=== PATIENT | female | born 1990 | race Two or more races ===

== ENCOUNTER 2019-12-17 15:48 | Emergency (ER) | payer MEDICAID ==
[~2019-12-17] VITALS: Ht 154.9 cm; Wt 67.6 kg
[2019-12-17 15:53] VITALS: BP 122/82
--- NOTE | 2019-12-17 16:35 | Emergency Room Report ---
History of Present Illness General Chief Complaint: Lower Extremity Injury Source: Patient Present Illness HPI 29 YO female presents to the ED c/o 11/21 in severity right knee pain x 1 month. Denies trauma or fall. Patient reports that she was squatting down to pick something up and she felt 3 pops in her knee. Patient states that she was still able to bear weight and walk however throughout the rest of that day she began having more pain and she woke up the next day with a swollen knee. Patient reports that over the course of 1 month her knee swelling has gone up and down depending on how much activity she is doing. Patient denies instability. She does report pain with full extension of the knee. Patient reports most comfortable position is with the knee slightly bent. She denies previous injury to the extremity. She denies bruising, skin color changes or temperature changes to the affected extremity. Patient denies paresthesias. No other aggravating or relieving factors. Patient reports she took Motrin for the first week and had some relief however she states she does not like taking oral medication and would rather have some other form of remedy. Allergies: Coded Allergies: ACETAMINOPHEN (Verified Allergy, Unknown, 12/17/19) HYDROCODONE (Verified Allergy, Unknown, 12/17/19) COVID-19 Screening Contact w/high risk pt: No Experienced COVID-19 symptoms?: No COVID-19 Testing performed SEVERITY OF ILLNESS COORDINATOR: No Patient History Past Medical History: see triage record Past Surgical History: none Pertinent Family History: none Last Menstrual Period: 12/07/19 Now: No Reviewed Nursing Documentation: PMH: Agreed; PSxH: Agreed Nursing Documentation-PMH Past Medical History: No Stated History Review of Systems All Other Systems: negative except mentioned in HPI Physical Exam Vital Signs Date Time Temp Pulse Resp B/P (MAP) Pulse Ox O2 Delivery O2 Flow Rate FiO2 12/17/19 15:53 99.0 74 17 122/82 (95) 98 Room Air Sp02 EP Interpretation: reviewed, normal General Appearance: no apparent distress, alert, GCS 15, non-toxic Head: normocephalic, atraumatic Eyes: bilateral eye normal inspection, bilateral eye PERRL ENT: hearing grossly normal, normal voice Neck: full range of motion Respiratory: lungs clear, normal breath sounds, speaking full sentences Cardiovascular #1: regular rate, rhythm, no edema, normal capillary refill Cardiovascular #2: 2+ dorsalis pedis (R), 2+ dorsalis pedis (L) Musculoskeletal: back normal, normal range of motion, gait/station normal, other - No increased laxity upon varus or valgus stressing, negative anterior and posterior drawer signs of the right knee. some visible swelling anteriorly and proximally. No erythema or increased warmth. Neurologic: alert, motor strength/tone normal, oriented x3, sensory intact, responsive, speech normal Psychiatric: judgement/insight normal Skin: no rash, normal color Medical Decision Making PA Attestation Dr. Ortiz is my supervising Physician whom patient management has been discussed with. Diagnostic Impression: Primary Impression: Knee pain, right Qualified Codes: M25.561 - Pain in right knee ER Course 29 YO female presents to the ED c/o 11/21 in severity right knee pain x 1 month. Denies trauma or fall. Patient reports that she was squatting down to pick something up and she felt 3 pops in her knee. Patient states that she was still able to bear weight and walk however throughout the rest of that day she began having more pain and she woke up the next day with a swollen knee. Patient reports that over the course of 1 month her knee swelling has gone up and down depending on how much activity she is doing. Patient denies instability. She does report pain with full extension of the knee. Patient reports most comfortable position is with the knee slightly bent. She denies previous injury to the extremity. She denies bruising, skin color changes or temperature changes to the affected extremity. Patient denies paresthesias. No other aggravating or relieving factors. Patient reports she took Motrin for the first week and had some relief however she states she does not like taking oral medication and would rather have some other form of remedy. Ddx considered but are not limited to Fracture, dislocation, contusion, meniscal or ligamental injury/tear , Sprain/Strain/Spasm Vital signs: are WNL, pt. is afebrile H&PE are most consistent with knee strain/ overuse. ORDERS: X-ray right knee complete 3 view - negative for fx, Dislocation, or significant soft tissue injury ED INTERVENTIONS: - James wrap applied by special technical operations officer. -Patient is provided with crutches and instructed on their use D/w pt. rx'ing Voltaren Gel as an alternative to oral NSAIDS DISCHARGE: At this time pt. is stable for d/c to home. Will provide printed patient care instructions, and any necessary prescriptions. Care plan and follow up instructions have been discussed with the patient prior to discharge. Other X-Ray Diagnostic Results Other X-Ray Diagnostic Results : X-Ray ordered: Right knee # of Views/Limited Vs Complete: 3 View Indication: Pain EP Interpretation: Yes PA Xray: Interpretation reviewed, by supervising MD, and agrees with findings. Interpretation: no dislocation, no soft tissue swelling, no fractures Impression: No acute disease Electronically Signed by: Kiara Villareal PA-C Last Vital Signs Date Time Temp Pulse Resp B/P (MAP) Pulse Ox O2 Delivery O2 Flow Rate FiO2 12/17/19 15:53 99.0 74 17 122/82 (95) 98 Room Air Disposition: HOME, SELF-CARE Condition: Stable Scripts Diclofenac Sodium (VOLTAREN) 100 Gm Gel..gram. 1 APPLIC TP Q6HR, #100 GM Prov: Kiara Villareal 12/17/19 Referrals: NON PHYSICIAN (PCP) Patient Instructions: Knee Sprain Additional Instructions: Take medications as directed. Follow up with an HEARING AND SPEECH ASSISTANT in 3-5 days, even if your symptoms have resolved. If symptoms persist MRI may be required at the discretion of your PCP or Ortho Specialist. --Please review list of primary care clinics, if you do not already have a primary care provider who can give you an Orthopedic Referral. Return sooner to ED if new symptoms occur, or current symptoms become worse. - Please note that this Emergency Department Report was dictated using [employer] molder technology software, occasionally this can lead to erroneous entry secondary to interpretation by the dictation equipment. Kiara Villareal Dec 17, 2019 16:35
[2019-12-17] MEDS ORDERED: VOLTAREN100 G1 TP (16:39)
--- NOTE | 2019-12-17 16:48 | Diagnostic Imaging Report ---
EXAM: X-RAY XRAY Knee 3v R CLINICAL HISTORY: Knee pain. COMPARISON: None FINDINGS: Total of 3 views of the right knee were obtained. Alignment is anatomic. There is no fracture, bony lesions or erosions. Joint spaces are unremarkable. Surrounding soft tissue is normal. IMPRESSION: NO ACUTE BONY ABNORMALITY.
== END 2019-12-17 17:01 | disposition home or self-care (01) ==
LOC: EMR 16:00
DX: M25.561 Pain in right knee (principal); Z88.6 Allergy status to analgesic agent
CPT/HCPCS: 73562; Z7502; 99283